=== PATIENT | female | born 1980 | race Caucasian/White ===

== ENCOUNTER 2016-06-23 05:50 | Inpatient (IN) | payer OTHER ==
[~2016-06-23] VITALS: Ht 172.7 cm; Wt 92.3 kg
[2016-06-23] VITALS (25 sets, daily range): BP systolic 91–138; BP diastolic 47–83; PULSE 62–103; TEMP 97.8–98.2
[~2016-06-23 05:50] MED LIST: CALCIUM1 CAP PO; DUO-KAPS1 CAP PO; IRON324 M1 PO
[2016-06-23 07:01] LABS: BASO % 0.2 % (0.0-2.0); EOS # 0.1 (0.0-0.7); EOS % 0.7 % (0-4.0); GRAN # 7.3 (1.4-6.5); GRAN % 75.1 % (42.2-75.2); HEMOGLOBIN 12.1 g/dl (12.5-16.0); LYMPH # 1.7 (1.2-3.4); LYMPH % 17.6 % (20.0-51.0); MEAN CELL VOLUME 87 fl (80.0-100.0); MEAN CORPUSCULAR HEMOGLOBIN 29 pg (27.0-31.0); MEAN CORPUSCULAR HGB CONC 34 g/dl (33.0-37.0); MEAN PLATELET VOLUME 9.8 fl (7.4-10.4); MONO # 0.6 (0.1-0.6); MONO % 5.7 % (1.7-9.3); PLATELET COUNT 235 K/mm3 (130-400); RED BLOOD COUNT 4.11 M/mm3 (4.10-5.30); REDCELL DISTRIBUTION WIDTH-CV 13.1 % (11.5-14.5); WHITE BLOOD COUNT 9.8 K/mm3 (4.8-10.8)
[2016-06-23 07:14] LABS: HEMATOCRIT 35.7 % (37.0-47.0)
[2016-06-24 00:10] VITALS: BP 110/55; PULSE 71; TEMP 97.7
[2016-06-24 05:30] VITALS: BP 115/42; PULSE 86; TEMP 97.8
[2016-06-24 07:52] VITALS: BP 117/58; PULSE 87; TEMP 97.4
== END 2016-06-24 11:33 | disposition home or self-care (01) | DRG 775 ==
LOC: LDRO 05:50 → LDR 07:10 → OB 12:50
PROVIDERS: Obstetrics & Gynecology
PROC: 10E0XZZ Delivery of Products of Conception, External Approach (ICD-10-PCS; principal; 2016-06-23)
PROC: 0HQ9XZZ Repair Perineum Skin, External Approach (ICD-10-PCS; 2016-06-23)
DX: O48.0 Post-term pregnancy (principal); O70.0 First degree perineal laceration during delivery; O09.43 Supervision of pregnancy with grand multiparity, third trimester; Z3A.40 40 weeks gestation of pregnancy; Z37.0 Single live birth
CPT/HCPCS: J2590; J7120